=== PATIENT | female | born 1950 | race Caucasian/White ===

== ENCOUNTER 2018-01-05 01:44 | Emergency (ER) | payer OTHER ==
[2018-01-05 01:49] VITALS: BP 170/86
== END 2018-01-05 02:46 | disposition home or self-care (01) ==
LOC: ED 01:44
DX: S29.012A Strain of muscle and tendon of back wall of thorax, initial encounter (principal); E03.9 Hypothyroidism, unspecified; X50.0XXA Overexertion from strenuous movement or load, initial encounter; Y93.89 Activity, other specified; Y92.89 Other specified places as the place of occurrence of the external cause; Y99.8 Other external cause status
CPT/HCPCS: J1885